=== PATIENT | male | born 1955 | race Two or more races ===

== ENCOUNTER 2016-06-22 05:45 | Inpatient (IN) | payer MEDICAID ==
[2016-06-22 06:50] VITALS: BP 143/90
[2016-06-22] MEDS ORDERED: Ampicillin Sodium/Sulbactam 3 GM in Sodium Chloride 0.9% 100 ML IV SCH (08:00)
[2016-06-22] MEDS ORDERED: Polyvinyl Alcohol Ophth Soln 15 mL Bottle EACH EYE PRN (08:16)
[2016-06-22] MEDS ORDERED: Maalox 30 mL Cup PO PRN (08:18)
[2016-06-22] MEDS ORDERED: Ipratropium Neb 0.5 mg/2.5 mL UD IH PRN (08:18)
[2016-06-22] MEDS ORDERED: guaiFENesin 200 MG/10 ML UDC PO PRN (08:18)
[2016-06-22] MEDS ORDERED: Hydrocodone/APAP 5mg/325mg Tab PO PRN (08:18)
[2016-06-22] MEDS ORDERED: Albuterol Nebulizer 2.5mg/3mL IH PRN (08:18)
[2016-06-22] MEDS ORDERED: D5-0.45NS 1,000 ML IV SCH (08:30)
[2016-06-22] MEDS ORDERED: AMLODIPINE BESYLATE PO SCH (09:00)
[2016-06-22] MEDS ORDERED: Pantoprazole 40 mg EC Tab PO SCH (09:00)
[2016-06-22] MEDS ORDERED: Pneumococcal Vaccine 0.5 mL Vial IM ONE (10:00)
[2016-06-22] MEDS ORDERED: Influenza Vaccine 0.5 mL Syr IM ONE (10:00)
== END 2016-06-22 11:25 | disposition left against medical advice (07) | DRG 383 ==
LOC: MSI 05:45
PROVIDERS: ADMIT Internal Medicine; ATTEND Internal Medicine
DX: L03.114 Cellulitis of left upper limb (principal)
CPT/HCPCS: J0295; Z7610